=== PATIENT | female | born 1995 | race African-American/Black ===

== ENCOUNTER 2018-04-16 15:58 | Emergency (ER) | payer OTHER ==
[~2018-04-16] VITALS: Ht 162.6 cm; Wt 61.8 kg
[~2018-04-16 15:58] MED LIST: AMOXICILLIN 50500 MG PO; ATARAX 25MG25 MG/TAB PO; BENADRYL25 M2 PO; CLARITIN; MIRALAX PA17 GM/Dose PO; MUCINEX 60600 MG/TA1; NASONEX0.05 MG/AC NS; NO HOME MEDICATIONS; PERCOCET 325 MG1 TA2 PO; PRIL40 PO; PROMETHAZINE D118 ML PO; SINGULAIR; SINGULAIR 110 MG/TAB PO; ULTRAM 50MG TAB50 MG PO; XIFAXAN200 MG PO; ZITHROMAX Z PA250 MG PO
[2018-04-16 16:49] LABS: COLLECTION METHOD CLEAN CATCH
[2018-04-16 16:55] LABS: BASO % 0.1 % (0.0-2.0); GRAN # 13.2 (1.4-6.5); GRAN % 87.9 % (42.2-75.2); HEMOGLOBIN 12.5 g/dl (12.0-15.0); LYMPH # 0.7 (1.2-3.4); LYMPH % 4.7 % (20.0-51.0); MEAN CELL VOLUME 89 fl (80.0-95.0); MEAN CORPUSCULAR HEMOGLOBIN 31 pg (26.0-32.0); MEAN CORPUSCULAR HGB CONC 35 g/dl (33.0-37.0); MEAN PLATELET VOLUME 11.4 fl (7.4-10.4); MONO % 6.8 % (1.7-9.3); PLATELET COUNT 224 K/mm3 (130-400); RED BLOOD COUNT 4.06 M/mm3 (4.10-5.30); REDCELL DISTRIBUTION WIDTH-CV 11.7 % (11.5-14.5)
[2018-04-16 16:56] LABS: HEMATOCRIT 36.1 % (35.0-45.0)
[2018-04-16 17:03] LABS: ALBUMIN 4.3 gm/dL (3.5-5.0); BILIRUBIN,TOTAL 0.9 mg/dL (0.0-1.0); CALCIUM 9.7 mg/dL (8.4-10.2); CREATININE, serum 0.83 mg/dL (0.52-1.25); POTASSIUM 3.6 mmol/L (3.4-5.0); TOTAL PROTEIN 9.1 gm/dL (6.4-8.2)
[2018-04-16 17:20] LABS: MUCOUS Present /lpf; PH 5 (5-8); SQUAMOUS EPITHELIAL 0-2 /hpf; URINE APPEARANCE Hazy; URINE BACTERIA Rare /hpf; URINE BILIRUBIN Negative (NEGATIVE); URINE BLOOD 2+ (NEGATIVE); URINE COLOR Yellow; URINE GLUCOSE Negative (NEGATIVE); URINE KETONE Negative (NEGATIVE); URINE LEUKOCYTE ESTERASE 1+ (NEGATIVE); URINE NITRATE Positive (NEGATIVE); URINE PROTEIN(semi-quant) Negative (NEGATIVE); URINE UROBILINOGEN Negative (NEGATIVE)
[2018-04-16 18:21] VITALS: BP 112/65; TEMP 99.8
[2018-04-16] MEDS ORDERED: ZOFRAN 4MG T4 MG/TAB PO (18:42)
[2018-04-16] MEDS ORDERED: OMNICEF 300MG300 MG PO (18:42)
[2018-04-16 18:48] VITALS: PULSE 92
== END 2018-04-16 18:48 | disposition home or self-care (01) ==
LOC: COL.ER 15:58
PROVIDERS: Emergency Medicine
DX: N10 Acute pyelonephritis (principal)
CPT/HCPCS: J0696; J1170; J1885; J2405; J7030

== ENCOUNTER 2018-04-17 00:08 | Emergency (ER) | payer OTHER ==
[~2018-04-17] VITALS: Ht 154.9 cm; Wt 61.8 kg
[~2018-04-17 00:08] MED LIST changes: +OMNICEF 300MG300 MG PO; +ZOFRAN 4MG T4 MG/TAB PO
[2018-04-17 00:10] VITALS: BP 114/64; TEMP 99.9
[2018-04-17 02:31] VITALS: PULSE 95
== END 2018-04-17 02:30 | disposition home or self-care (01) ==
LOC: COL.ER 00:08
DX: K22.6 Gastro-esophageal laceration-hemorrhage syndrome (principal)
CPT/HCPCS: J2550

== ENCOUNTER 2020-02-06 21:11 | Emergency (ER) | payer OTHER ==
[~2020-02-06] VITALS: Ht 154.9 cm; Wt 69.1 kg
[2020-02-06 21:15] VITALS: BP 124/66; TEMP 97.5
[2020-02-06] MEDS ORDERED: DESYREL 50MG50 MG PO (21:16)
[2020-02-06 22:14] LABS: STREP SCREEN POSITIVE
[2020-02-06 22:49] VITALS: PULSE 85
== END 2020-02-06 22:49 | disposition home or self-care (01) ==
LOC: COL.ER 21:11
PROVIDERS: Physician Assistant
DX: J02.0 Streptococcal pharyngitis (principal)
CPT/HCPCS: J0561

== ENCOUNTER 2020-10-14 18:29 | Emergency (ER) | payer SELFPAY ==
[~2020-10-14] VITALS: Ht 154.9 cm; Wt 75.7 kg
[~2020-10-14 18:29] MED LIST changes: +DESYREL 50MG50 MG PO
[2020-10-14 18:55] VITALS: BP 122/77; PULSE 86; TEMP 98.1
[2020-10-14] MEDS ORDERED: CLEOCIN HC150 MG/CAP PO (20:05)
== END 2020-10-14 20:11 | disposition home or self-care (01) ==
LOC: COL.ER 18:29
DX: Z48.01 Encounter for change or removal of surgical wound dressing (principal); L02.91 Cutaneous abscess, unspecified

== ENCOUNTER 2020-12-17 01:30 | Emergency (ER) | payer SELFPAY ==
[~2020-12-17] VITALS: Ht 154.9 cm; Wt 76.8 kg
[~2020-12-17 01:30] MED LIST changes: +CLEOCIN HC150 MG/CAP PO
[2020-12-17 01:41] VITALS: TEMP 97.8
[2020-12-17] MEDS ORDERED: MOTRIN 800800 MG/TAB PO (02:03)
[2020-12-17] MEDS ORDERED: AMOXICILLIN 8751 TAB PO (02:03)
[2020-12-17 02:10] VITALS: BP 124/85; PULSE 84
== END 2020-12-17 02:10 | disposition home or self-care (01) ==
LOC: COL.ER 01:30
DX: L03.011 Cellulitis of right finger (principal)

== ENCOUNTER 2021-04-13 14:27 | Emergency (ER) | payer OTHER ==
[~2021-04-13] VITALS: Ht 154.9 cm; Wt 77.3 kg
[~2021-04-13 14:27] MED LIST changes: +AMOXICILLIN 8751 TAB PO; +MOTRIN 800800 MG/TAB PO
[2021-04-13 14:34] VITALS: TEMP 98.1
[2021-04-13] MEDS ORDERED: DOXYCYCLINE HY100 MG PO (14:39)
[2021-04-13] MEDS ORDERED: FLAGYL 250250 MG/TAB PO (14:40)
[2021-04-13 15:32] LABS: BASO % 0.1 % (0.0-2.0); EOS # 0.1 (0.0-0.7); EOS % 0.6 % (0-4.0); GRAN # 6.9 (1.4-6.5); GRAN % 69.9 % (42.2-75.2); HEMATOCRIT 39.8 % (37.0-47.0); HEMOGLOBIN 13.8 g/dl (12.5-16.0); LYMPH # 2.2 (1.2-3.4); LYMPH % 21.9 % (20.0-51.0); MEAN CELL VOLUME 87 fl (80.0-100.0); MEAN CORPUSCULAR HEMOGLOBIN 30 pg (27.0-31.0); MEAN CORPUSCULAR HGB CONC 35 g/dl (33.0-37.0); MEAN PLATELET VOLUME 11.2 fl (7.4-10.4); MONO # 0.7 (0.1-0.6); MONO % 7.3 % (1.7-9.3); PLATELET COUNT 255 K/mm3 (130-400); REDCELL DISTRIBUTION WIDTH-CV 12.3 % (11.5-14.5)
[2021-04-13 15:48] LABS: COLLECTION METHOD CLEAN CATCH
[2021-04-13 15:50] LABS: ALANINE AMINOTRANSFERASE 22 U/L (4-34); ALBUMIN 4.3 gm/dL (3.5-5.0); ALKALINE PHOSPHATASE 82 U/L (50-136); ANION GAP 9 mmol/L (7-16); AST,SGOT 31 U/L (15-37); BILIRUBIN,TOTAL 0.2 mg/dL (0.0-1.0); BLOOD UREA NITROGEN 11 mg/dL (7-17); CALCIUM 9.5 mg/dL (8.4-10.2); CARBON DIOXIDE 23 mmol/L (22-30); CHLORIDE 105 mmol/L (98-107); CREATININE, serum 0.89 (0.52-1.25); GLUCOSE 98 mg/dL (74-106); POTASSIUM 3.9 mmol/L (3.4-5.0); SODIUM 137 mmol/L (137-145); TOTAL PROTEIN 8.5 gm/dL (6.4-8.2)
[2021-04-13 15:53] LABS: C-REACTIVE PROTEIN < 0.5 mg/dL (0.0-0.9)
[2021-04-13 16:00] LABS: MUCOUS Present /lpf; PH 7 (5-8); SQUAMOUS EPITHELIAL 0-2 /hpf; URINE APPEARANCE Clear; URINE BACTERIA None Seen /hpf; URINE BILIRUBIN Negative (NEGATIVE); URINE BLOOD Negative (NEGATIVE); URINE COLOR Yellow; URINE GLUCOSE Negative (NEGATIVE); URINE KETONE Negative (NEGATIVE); URINE LEUKOCYTE ESTERASE Trace (NEGATIVE); URINE NITRATE Negative (NEGATIVE); URINE PROTEIN(semi-quant) Negative (NEGATIVE); URINE RBC 0-2 /hpf; URINE UROBILINOGEN Negative (NEGATIVE)
[2021-04-13] MEDS ORDERED: ULTRAM 50MG TAB50 MG PO (16:08)
[2021-04-13 16:32] VITALS: BP 116/90; PULSE 91
== END 2021-04-13 16:34 | disposition home or self-care (01) ==
LOC: COL.ER 14:27
PROVIDERS: Emergency Medicine
DX: R31.9 Hematuria, unspecified (principal); R10.32 Left lower quadrant pain; Z32.02 Encounter for pregnancy test, result negative
CPT/HCPCS: J1885; J7030

== ENCOUNTER 2021-11-15 21:19 | Emergency (ER) | payer OTHER ==
[~2021-11-15] VITALS: Ht 154.9 cm; Wt 79.5 kg
[~2021-11-15 21:19] MED LIST changes: +DOXYCYCLINE HY100 MG PO; +FLAGYL 250250 MG/TAB PO
[2021-11-15 21:35] VITALS: TEMP 99.3
[2021-11-15 23:10] VITALS: BP 132/80; PULSE 80
== END 2021-11-15 22:54 | disposition home or self-care (01) ==
LOC: COL.ER 21:19
DX: U07.1 COVID-19 (principal)